=== PATIENT | female | born 1965 | race African-American/Black ===

== ENCOUNTER 2019-02-20 13:50 | Observation (INO) ==
[2019-02-20] MEDS ORDERED: MIRALAX PO PRN (19:07)
[2019-02-20 19:47] LABS: BASO# 0.04 X1000 (0.0-0.2); BASO% 0.5 % (0.0-0.8); EOS# 0.18 X1000 (0.0-0.7); EOS% 2.4 % (0.0-10.0); HEMATOCRIT 35.4 % (37.0-47.0); HEMOGLOBIN 11.7 g/dL (12.0-16.0); IMM GRAN# 0.02 X1000 (0.0-0.04); IMM GRAN% 0.3 % (0.0-0.5); LYMPH# 3.01 X1000 (1.2-3.4); LYMPH% 40.4 % (20.5-51.1); MCH 28.4 PG (27-31); MCHC 33.1 g/dL (33-37); MCV 85.9 FL (81-99); MONO# 0.55 X1000 (0.11-0.59); MONO% 7.4 % (1.7-9.3); MPV 11.2 FL (7.4-10.4); NEUT# 3.65 X1000 (1.4-6.5); PLT 310 X1000 (130-400); RBC 4.12 XMIL (4.2-5.4); RDW 14.4 % (11.5-14.5); WBC 7.45 X1000 (4.8-10.8)
[2019-02-20 19:57] LABS: HEMOGLOBIN A1C 14.1 % (4.8-6.0)
[2019-02-20 20:10] LABS: AGAP 11; ALBUMIN 3.6 g/dL (3.5-5.0); ALKALINE PHOSPHATASE 139 U/L (32-104); BUN 34 mg/dL (8-22); CALCIUM 9.3 mg/dL (8.8-10.2); CHLORIDE 101 mmol/L (98-107); COSMO 295; CREATININE 0.9 mg/dL (0.5-0.9); ESTIMATED GFR > 60; GOT 15 U/L (10-30); GPT 17 U/L (10-36); POTASSIUM 4.2 mmol/L (3.5-5.1); SODIUM 135 mmol/L (136-145); TCO2 23 mmol/L (25-35); TOTAL BILIRUBIN < 0.15 mg/dL (0.20-1.00); TOTAL PROTEIN 7.1 g/dL (6.3-8.3)
[2019-02-20 20:15] LABS: GLUCOSE 409 mg/dL (70-104)
[2019-02-20] MEDS ORDERED: SODIUM CHLORIDE 0.9% INJ SCH (21:30)
[2019-02-20] MEDS: HUMULIN R SUBQ SCH (22:40)
[2019-02-20] MEDS: LOVENOX SUBQ SCH (22:40)
[2019-02-20] MEDS: NEURONTIN PO SCH (22:40)
[2019-02-20 23:15] LABS: URINE SOURCE CLEAN CATCH
[2019-02-20 23:24] LABS: UR EPITHELIAL CELLS <10 /HPF (<10); URINE BACTERIA NEGATIVE /HPF; URINE RBC <10 /HPF (<10); URINE WBC 20-40 /HPF (<10)
--- NOTE | 2019-02-20 23:25 | HISTORY AND PHYSICAL ---
CHIEF COMPLAINT: Uncontrolled blood sugar, running around 600. HISTORY OF PRESENT ILLNESS: She is a 53-year-old female, noncompliant, with uncontrolled diabetes with neuropathy, suffering from neuropathy. Also under the care of Dr. Hurst. Not able to control the blood sugar, obviously. She was on insulin pump and she is noncompliant. She is not getting supplies. She was also seen in the emergency room by Dr. Portillo. He changed the medications and basically admitted her to the hospital for control of diabetes. I placed her on FreeStyle Geremias, and blood sugar is around 400 to 600. She complains of polyuria, polydipsia and vision problems. PAST MEDICAL HISTORY: Neuropathic ulcer in the right foot, hypertension, acid reflux disease, gastroparesis, metabolic syndrome, poorly controlled diabetes. PAST SURGICAL HISTORY: Tubal ligation, incision and drainage of left buttock abscess, right cataract surgery, cholecystectomy. ALLERGIES: Norvasc: Peripheral edema; tramadol: Itching; metformin causing itching and bumps. MEDICATIONS: Aspirin; gabapentin 300 t.i.d.; losartan 25 daily; Amaryl 4 mg daily; Bydureon BCise 2 mg once a week; Hyzaar 100/12.5 daily; polyethylene glycol 17 g daily. 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 No smoking. Occasionally drinks alcohol. She is . FAMILY HISTORY: Father is 79 years old, has PAD from diabetes. Mother has hypertension and diabetes. REVIEW OF SYSTEMS: HEENT: Vision problems. Polyuria, polydipsia. No neck pain. No goiter. Cardiopulmonary: No chest pain, shortness of breath, PND or orthopnea. GI: No nausea, vomiting, abdominal pain. : History of hesitancy, frequency. No dysuria. Has a neuropathic ulcer on the bottom of the right foot. Decreased sensory exam. Neurologic: No focal symptoms, weakness or seizures. PHYSICAL EXAMINATION: VITAL SIGNS: Temperature is 97 degrees, pulse is 83, 119/55. Five feet 5 inches, 197 pounds. HEENT: Exam atraumatic, normocephalic. Pupils equal and reactive to light. TMs are normal. Nose and throat within normal limits. NECK: Supple. No lymphadenopathy. No goiter. CHEST: Bilateral air entry. HEART: Sounds are regular. No murmurs. ABDOMEN: Belly is soft, nontender. Good bowel sounds. EXTREMITIES: Decreased sensory exam. Right foot pressure ulcer slowly healing, under the care of Dr. Hurst. FreeStyle Geremias sensor was placed on the right arm. LABORATORY DATA: CBC: White cell count 7.4, hematocrit 35, platelets 144,000. Sodium 135, potassium 4.2, chloride 101, BUN 34, creatinine 0.9, glucose 409. A1c 14.1. LFTs were normal. ASSESSMENT AND PLAN: 1. A 53-year-old female admitted to the hospital due to uncontrolled diabetes, due to noncompliance. Plan of care as follows: Intravenous fluids. Continue on Bydureon BCise and consider using Jardiance 25 mg daily. 2. Reconcile home medications. 3. Abnormal mammography in [address]. Dr[address] Arce' biopsy was negative. 4. Peripheral neuropathy with ulcer on the right great toe, under the care of Dr. Hurst. We will consult Wound. A1c was 14. 5. Deep venous thrombosis and gastrointestinal prophylaxis with Lovenox and Protonix, respectively. Follow up. cc: Desean Parada MD
[2019-02-20 23:34] LABS: BILIRUBIN URINE NEGATIVE (NEGATIVE); BLOOD URINE MODERATE (NEGATIVE); COLOR YELLOW; GLUCOSE URINE >1000 mg/dL (NEGATIVE); KETONE URINE TRACE mg/dL (NEGATIVE); LEUKOCYTES URINE SMALL (NEGATIVE); NITRITE URINE NEGATIVE (NEGATIVE); PH URINE 5.5; PROTEIN URINE TRACE mg/dL (NEGATIVE); SP GRAVITY URINE 1.016; TURBIDITY URINE CLEAR (CLEAR); UROBILINOGEN URINE NORMAL (NORMAL)
[2019-02-20 23:49] LABS: URINE CASTS NONE SEEN; URINE CRYSTALS NONE SEEN; URINE SMALL ROUND CELLS NONE SEEN; URINE YEAST NONE SEEN
[2019-02-21] MEDS: NS 1,000 ML IV SCH ×2 (01:14→11:00)
[2019-02-21] MEDS: HUMULIN R SUBQ SCH ×5 (01:20→22:06)
[2019-02-21] MEDS: PEPCID IV SCH ×3 (01:26→22:07)
[2019-02-21] MEDS: NEURONTIN PO SCH ×3 (09:41→22:06)
[2019-02-21] MEDS: ASPIRIN PO SCH (09:41)
[2019-02-21] MEDS: AMARYL PO SCH ×2 (09:42→15:54)
[2019-02-21] MEDS: PHENERGAN PO PRN (10:20)
[2019-02-21] MEDS: TYLENOL PO PRN ×2 (10:20→15:53)
[2019-02-21] MEDS: LOVENOX SUBQ SCH (22:06)
--- NOTE | 2019-02-22 01:52 | PROGRESS NOTE ---
DATE: 02/21/2019 SUBJECTIVE: The patient has nauseous. Complains of pain in the right foot. I spoke to Wound consult for a right peripheral neuropathy ulcer OBJECTIVE: Vital Signs: On examination, temperature is 97 degrees, pulse 86, blood pressure is stable. HEENT: Exam within normal limits. Neck: Supple. Blood sugars 366. Abdomen: Belly is soft, nontender. ASSESSMENT AND PLAN: 1. Uncontrolled diabetes. We will check the C-peptide in the morning, basic metabolic. 2. Nausea, due to gastroparesis. We will use the Phenergan. 3. Poor intravenous access. We will attempt the IV. 4. Peripheral neuropathy ulcer on the right foot. Wound consult. 5. Deep venous thrombosis prophylaxis with the Lovenox and continue monitoring the blood sugars and we will check the C-peptide and we will decide LEVEL OF DOCUMENTATION: 35 minutes. cc: Desean Parada MD MTDD
[2019-02-22] MEDS: PHENERGAN PO PRN (06:39)
[2019-02-22] MEDS: HUMULIN R SUBQ SCH ×4 (06:54→20:44)
[2019-02-22 07:11] LABS: AGAP 9; BUN 26 mg/dL (8-22); CALCIUM 8.8 mg/dL (8.8-10.2); CHLORIDE 101 mmol/L (98-107); COSMO 297; CREATININE 0.8 mg/dL (0.5-0.9); ESTIMATED GFR > 60; POTASSIUM 3.9 mmol/L (3.5-5.1); SODIUM 137 mmol/L (136-145); TCO2 27 mmol/L (25-35)
[2019-02-22 07:34] LABS: GLUCOSE 423 mg/dL (70-104)
[2019-02-22] MEDS: TRESIBA FLEXTOUCH U-100 SUBQ SCH (10:09)
[2019-02-22] MEDS: PEPCID IV SCH ×3 (10:11→22:41)
[2019-02-22] MEDS: NEURONTIN PO SCH ×3 (10:11→20:35)
[2019-02-22] MEDS: AMARYL PO SCH (10:11)
[2019-02-22] MEDS: ASPIRIN PO SCH (10:11)
[2019-02-22] MEDS: JARDIANCE 25 MG PO SCH (10:11)
[2019-02-22] MEDS: TYLENOL PO PRN (10:18)
--- NOTE | 2019-02-22 20:21 | PROGRESS NOTE ---
DATE: 02/22/2019 SUBJECTIVE: Poor IV access. Complained of nausea, and blood sugars were erratic. FreeStyle Geremias monitor was given. Blood sugar is running 400. The patient has right foot neuropathic ulcer, which had bandage done. OBJECTIVE: On examination, temperature is 97.5 degrees, pulse 94, blood pressure 154/76. HEENT exam within normal limits. Neck is supple. No lymphadenopathy. Chest has bilateral air entry. Heart sounds are regular. Belly is soft, obese, nontender. Good bowel sounds. No neurological deficits. ASSESSMENT AND PLAN: 1. Uncontrolled diabetes. Currently the plan of care is continue on Bydureon BCise. Start on Jardiance 25 mg daily, Tresiba 20 units daily. Discontinue insulin pump. 2. Possible urinary tract infection. Urine cultures are negative. 3. Right foot neuropathic culture, not healing due to uncontrolled diabetes. Local wound care. 4. Nausea due to diabetic gastroparesis. We will use Phenergan as needed. 5. Deep venous thrombosis prophylaxis with Lovenox, gastrointestinal prophylaxis with Pepcid. We will monitor the sugar in the next 24 hours and follow up on C-peptide levels. Level of documentation 25 minutes. cc: Desean Parada MD
[2019-02-22] MEDS: LOVENOX SUBQ SCH (20:35)
[2019-02-23] MEDS: HUMULIN R SUBQ SCH ×3 (06:56→16:30)
[2019-02-23] MEDS: TYLENOL PO PRN (09:30)
[2019-02-23] MEDS: PEPCID IV SCH (09:30)
[2019-02-23] MEDS: NEURONTIN PO SCH ×3 (09:30→21:33)
[2019-02-23] MEDS: TRESIBA FLEXTOUCH U-100 SUBQ SCH (09:31)
[2019-02-23] MEDS: AMARYL PO SCH (09:31)
[2019-02-23] MEDS: ASPIRIN PO SCH (09:31)
[2019-02-23] MEDS: JARDIANCE 25 MG PO SCH (09:40)
--- NOTE | 2019-02-23 21:08 | PROGRESS NOTE ---
DATE: 02/23/2019 SUBJECTIVE: The patient has poor IV axis and nausea. Blood sugar is still running a little bit high, and C-peptide is low. I am going to increase the Tresiba 30 units and discontinue glimepiride. We will continue on Jardiance along with BCise Byetta. Blood sugars are monitoring on FreeStyle Geremias. OBJECTIVE: On examination, vital signs are stable. Physical exam no change. ASSESSMENT AND PLAN: Uncontrolled diabetes. Plan is increasing Tresiba 30 units. Since C- peptide is low, discontinue glimepiride, BCise and Jardiance. I explained the side effects of the infections. We will continue to monitor, and we will follow up as an outpatient. Level of documentation 25 minutes. cc: Desean Parada MD
[2019-02-23] MEDS: PEPCID PO SCH (21:33)
[2019-02-23] MEDS: PHENERGAN PO PRN (21:33)
[2019-02-23] MEDS: LOVENOX SUBQ SCH (21:34)
[2019-02-24] MEDS: HUMULIN R SUBQ SCH ×3 (00:14→11:32)
[2019-02-24] MEDS ORDERED: INSULIN PEN NEEDLES ONE (07:07)
[2019-02-24] MEDS ORDERED: TRESIBA FLEXTOUCH U-100 SUBQ SCH (09:00)
[2019-02-24] MEDS: NEURONTIN PO SCH (09:12)
[2019-02-24] MEDS: ASPIRIN PO SCH (09:12)
[2019-02-24] MEDS: PEPCID PO SCH (09:12)
[2019-02-24 11:29] VITALS: BP 136/68
[2019-02-24] MEDS: JARDIANCE 25 MG PO SCH (11:33)
--- NOTE | 2019-02-24 20:42 | DISCHARGE SUMMARY ---
ADMISSION DATE: 02/20/2019 DISCHARGE DATE: 02/24/2019 DISCHARGING DIAGNOSIS: 1. Uncontrolled blood sugar due to noncompliance. C-peptide 2.2. 2. Neuropathic ulcer in the right foot. 3. Hypertension. 4. Acid reflux disease. 5. Gastroparesis. 6. Metabolic syndrome. BRIEF HISTORY: Please see the H and P that was done on 02/20. In brief, she is a 53-year-old female has been disabled with complicated diabetes, noncompliant. Was on insulin pump. Seen several times in the ER. Discontinued insulin pump. C-peptide is low. HOSPITAL COURSE: During this hospital course, blood sugars running around 400 to 600. Initially was given IV fluids, and subsequently IV access is problematic. FreeStyle Geremias was placed, and blood sugars are fluctuating. The patient is noncompliant with diet. I did explain the plan of care with control of diabetes as follows. 1. Strict diet. 2. FreeStyle Geremias monitoring. 3. Byetta BCise 2 mg once a week. 4. Jardiance 25 mg daily. 5. Tresiba 40 units every day in the morning. LABS: During this hospital course, CBC: White cell count 7.4, hematocrit 35, platelets 310,000. Sodium 137, potassium 3.9, BUN 26, creatinine 0.8. C-peptide 2.2. A1c 14.1. Urinalysis moderate glycosuria. Urine cultures with mixed roel. DISCHARGE INSTRUCTIONS: 1. Strict diet. 2. FreeStyle Geremias monitoring. DISCHARGE MEDICATIONS: Aspirin 81 mg daily. Neurontin 300 t.i.d. Cozaar 25 daily. Bydureon 2 mg once a week. Hyzaar 100/12.5 daily. Jardiance 25 daily. Tresiba 40 units subcutaneously every day in the morning. MiraLAX 17 g daily. FOLLOWUP: Follow up with the [facility] with Dr. Hurst on the right foot neuropathic ulcer as well as in my office for maintenance care for diabetes. cc: MD Aram Watkins MD
[2019-02-25] MEDS ORDERED: PATIENT'S OWN MED SUBQ SCH (09:00)
== END 2019-02-24 12:59 | disposition home or self-care (01) ==
LOC: INTOOBSV 13:50 → DIRADM 13:50 → 4N 15:35
PROVIDERS: ADMIT Internal Medicine; ATTEND Internal Medicine
CPT/HCPCS: 80048; 80053; 81001; 82948; 83036; 84681; 85025; 87088; A9270; J1650; J7030; S0028; XXXXX

== ENCOUNTER 2019-03-10 10:14 | Inpatient (IN) ==
[2019-03-10 11:43] LABS: ALLEN TEST YES; BE -1.5 mmoll (-3.0-3.0); BLOOD TYPE ARTERIAL; HCO3-(ACT) 23.7 mmoll (20.0-26.0); O2(CT) 15.9 mL/dL (15.0-23.0); O2HB 95.2 % (95.0-99.0); PCO2(98.6) 41 mmHg (35-45); PO2(98.6) 85 mmHg (60-100); SAMPLE BLOOD; THB 11.8 g/dL (11.5-17.4); pH(98.6) 7.37 (7.35-7.45)
[2019-03-10 11:44] LABS: MODALITY ROOM AIR
[2019-03-10 11:45] LABS: BASO# 0.06 X1000 (0.0-0.2); BASO% 0.7 % (0.0-0.8); EOS# 0.22 X1000 (0.0-0.7); EOS% 2.6 % (0.0-10.0); HEMATOCRIT 37.9 % (37.0-47.0); HEMOGLOBIN 12.2 g/dL (12.0-16.0); IMM GRAN# 0.05 X1000 (0.0-0.04); IMM GRAN% 0.6 % (0.0-0.5); LYMPH# 2.82 X1000 (1.2-3.4); LYMPH% 32.8 % (20.5-51.1); MCH 28.6 PG (27-31); MCHC 32.2 g/dL (33-37); MCV 88.8 FL (81-99); MONO# 0.65 X1000 (0.11-0.59); MONO% 7.6 % (1.7-9.3); MPV 11.6 FL (7.4-10.4); NEUT# 4.79 X1000 (1.4-6.5); NEUT% 55.7 % (42.2-75.2); PLT 311 X1000 (130-400); RBC 4.27 XMIL (4.2-5.4); RDW 14.3 % (11.5-14.5); WBC 8.59 X1000 (4.8-10.8)
[2019-03-10 11:53] LABS: INR 0.83; PROTIME 12.1 Seconds (11.0-16.0)
[2019-03-10 11:54] LABS: PTT 29.1 Seconds (22.3-41.8)
[2019-03-10 12:08] LABS: AGAP 22; ALBUMIN 3.7 g/dL (3.5-5.0); ALKALINE PHOSPHATASE 191 U/L (32-104); BUN 32 mg/dL (8-22); CALCIUM 9.8 mg/dL (8.8-10.2); CHLORIDE 91 mmol/L (98-107); COSMO 290; CREATININE 1.1 mg/dL (0.5-0.9); ESTIMATED GFR > 60; GLUCOSE 334 mg/dL (70-104); GOT 25 U/L (10-30); GPT 19 U/L (10-36); POTASSIUM 4.8 mmol/L (3.5-5.1); SODIUM 135 mmol/L (136-145); TCO2 22 mmol/L (25-35); TOTAL BILIRUBIN 0.15 mg/dL (0.20-1.00); TOTAL PROTEIN 7.5 g/dL (6.3-8.3)
[2019-03-10 12:16] LABS: ACETONE SERUM MODERATE (NEGATIVE)
[2019-03-10 12:40] LABS: URINE SOURCE CLEAN CATCH
[2019-03-10 13:06] LABS: BILIRUBIN URINE NEGATIVE (NEGATIVE); BLOOD URINE SMALL (NEGATIVE); COLOR YELLOW; GLUCOSE URINE >1000 mg/dL (NEGATIVE); KETONE URINE 80 mg/dL (NEGATIVE); LEUKOCYTES URINE NEGATIVE (NEGATIVE); NITRITE URINE POSITIVE (NEGATIVE); PROTEIN URINE NEGATIVE (NEGATIVE); SP GRAVITY URINE 1.023; TURBIDITY URINE CLEAR (CLEAR); UR EPITHELIAL CELLS <10 /HPF (<10); URINE BACTERIA 3+ /HPF; URINE RBC <10 /HPF (<10); URINE WBC <10 /HPF (<10); UROBILINOGEN URINE NORMAL (NORMAL)
[2019-03-10 13:07] LABS: URINE YEAST PRESENT
--- NOTE | 2019-03-10 13:49 | Diag Imaging Result Doc PS360 ---
EXAM: CHEST-1 VIEW INDICATION: cp TECHNIQUE: One view COMPARISON: 02/19/2019 FINDINGS: The lungs are grossly clear. There is no discrete pleural fluid collection or pneumothorax. The cardiomediastinal silhouette and central vasculature are grossly unremarkable. IMPRESSION: No evidence of acute pathology by plain radiograph. Electronically signed by Anival Zaidi 03/10/2019 1:47 PM
--- NOTE | 2019-03-10 13:58 | PROVIDER DOCUMENTATION ---
This chart was entered by Krish Mcnamara Scribe, acting as scribe for Carlos A Ross MD. HPI-Chest Pain - General Chief Complaint: Chest Pain Stated Complaint: CP Time Seen by Provider: 03/10/19 10:35 Source: patient Allergies/Adverse Reactions: Patient Allergies Allergy/AdvReac Type Severity Reaction Status Date / Time metformin Allergy RASH Verified 03/04/19 18:57 tramadol Allergy NAUSEA Verified 03/04/19 18:57 Home Medications: Home Medication List Medication Instructions Recorded Confirmed Last Taken Type Aspirin 81 mg PO DAILY #30 tab.chew 01/04/16 02/20/19 02/19/19 Rx Gabapentin 300 mg PO TID 11/23/16 02/20/19 02/20/19 History Losartan [Cozaar] 25 mg PO DAILY 10/05/18 02/20/19 02/20/19 09:00 History Exenatide Microspheres [Bydureon 2 mg INJ DIRECTED 02/15/19 02/20/19 02/17/19 History Bcise] Losartan/Hctz [Hyzaar 100/12.5 mg 1 tab 02/20/19 02/20/19 History Tab] Polyethylene Glycol 3350 [Miralax] 17 gm PO DAILY PRN 02/20/19 02/20/19 02/15/19 History Insulin Degludec [Tresiba 40 unit SUBQ QAM #4 insuln.pen 02/24/19 Unknown Rx Flextouch U-100] Jardiance 25 mg PO DAILY #30 02/24/19 Unknown Rx - History of Present Illness-CP Nature of Presenting Problem: Pt is a 53 y/o F presents to the ED with chest pain that has been going on for a couple weeks since she has been out of the hospita. She reports SOB and worse with exertion. She says she was in the hospital for her diabetes. She says this morning before she ate her BS was 324. She comments that is good for her because it runs in the [facility] Location: reports: substernal (left) Chest Pain Radiation: reports: arms (left) Quality of Pain: reports: aching Severity in ED: mild Onset/Duration: other (2 weeks) Timing: still present Context/Activities at Onset: reports: none Modifying Factors: improves with: nothing Associated Symptoms: reports: shortness of breath. denies: diaphoresis, dizziness, fever/chills Nitro Today/Relief: no nitro taken today Aspirin Treatment Today: no aspirin today Prior Chest Pain/Cardiac Workup: reports: no prior chest pain, no prior cardiac workup Similar Symptoms Previously?: Yes Recently Seen Here or By Another Healthcare Provider: Yes Review of Systems - Adult - REVIEW OF SYSTEMS - ADULT Constitutional: denies: chills, fever Eyes: reports: no symptoms reported Ears, Nose, Mouth & Throat: reports: no symptoms reported Cardiovascular: reports: chest pain. denies: edema, orthopnea, palpitations Respiratory: reports: shortness of breath. denies: cough, wheezing Gastrointestinal: denies: nausea, vomiting Genitourinary: reports: no symptoms reported Musculoskeletal: reports: no symptoms reported Integumentary: reports: no symptoms reported Neurological: reports: no symptoms reported Psychiatric: reports: no symptoms reported Endocrine: reports: no symptoms reported Hematologic/Lymphatic: reports: no symptoms reported Allergic/Immunologic: reports: no symptoms reported All Other Systems: Reviewed and Negative Past History - Adult - PAST MEDICAL HISTORY-ADULT Review of Records: reports: Old Records Reviewed, Nursing Assessment Review, Medications Reviewed Major Childhood Illnesses: reports: denies history Cardiovascular: reports: HTN, hyperlipidemia Respiratory: reports: denies history. denies: asthma Gastrointestinal: reports: denies history Obstetrical/Gynecological: reports: denies history Genitourinary: reports: denies history Musculoskeletal: reports: denies history Neurological: reports: denies history, other Psychiatric: reports: denies history Endocrine/Immune: reports: Diabetes Other Conditions: reports: denies history - PRIOR SURGERIES/PROCEDURES Surgical/Procedure History: reports: reviewed, not pertinent, cholecystectomy, BTL - PRIOR HOSPITALIZATIONS Prior Hospitalizations: reports: none - IMMUNIZATION STATUS Childhood Immunizations: See Nurse Assessment Flu Vaccine: See Nurse Assessment - FAMILY HISTORY Family History: CAD under 55yo, HTN Physical Exam-General - PHYSICAL EXAM-ADULT Initial Vital Signs Reviewed: Yes - CONSTITUTIONAL General Appearance: appears well, alert, no apparent distress - EYES Eyes: PERRL/EOMI, pink conjunctivae - HEAD, EARS, NOSE, MOUTH & THROAT HENMT: moist mucous membranes, TMs normal, pharynx normal - NECK Neck: non-tender, full range of motion, supple, normal inspection - RESPIRATORY Respiratory: lungs clear, normal breath sounds, no pleuratic chest pain, no respiratory distress, no accessory muscle use - CARDIOVASCULAR Cardiovascular: normal peripheral pulses, regular rate, rhythm - GASTROINTESTINAL (ABDOMEN) Abdominal Exam: non tender, soft - MUSCULOSKELETAL Back Exam: normal inspection, no CVA tenderness, no vertebral tenderness Extremity: normal range of motion, non-tender, normal gait, normal inspection, no pedal edema - SKIN Integumentary: normal color, normal turgor, warm/dry - NEUROLOGIC Neurologic: grossly normal, no motor/sensory deficits - PSYCHIATRIC Psych/Mental Status: normal mood/affect, normal thought content, normal thought process, oriented x 3 - HEART Score HEART Score: History: Moderately Suspicious HEART Score: ECG: Non-Specific Repolarization Disturbance/LBBB/PM HEART Score: Age: 45-65 Years HEART Score: Risk Factors for Atherosclerotic Disease: > or = 3 Risk Factors or History of Atherosclerotic Disease HEART Score: Troponin: < or = Normal Limit Total HEART Score:: 5 Progress - PLAN OF CARE/RESULTS Progress/Plan/Lab Results: Vital Signs - 8 hr 03/10/19 10:27 03/10/19 11:33 Temperature 98.0 F Pulse Rate 92 H 89 Respiratory Rate 18 15 Blood Pressure 127/79 132/65 O2 Sat by Pulse Oximetry 100 100 Laboratory Results - last 24 hr 03/10/19 03/10/19 03/10/19 11:24 11:24 11:24 WBC 8.59 RBC 4.27 Hgb 12.2 Hct 37.9 MCV 88.8 MCH 28.6 MCHC 32.2 L RDW Std Deviation 14.3 Plt Count 311 MPV 11.6 H Immature Gran % (Auto) 0.6 H Neut % (Auto) 55.7 Lymph % (Auto) 32.8 Shoshone % (Auto) 7.6 Eos % (Auto) 2.6 Baso % (Auto) 0.7 Immature Gran # (Auto) 0.05 H Neut # (Auto) 4.79 Lymph # (Auto) 2.82 Shoshone # (Auto) 0.65 H Eos # (Auto) 0.22 Baso # (Auto) 0.06 PT INR PTT (Actin FS) Specimen Type Sample Site pH pCO2 pO2 HCO3 Base Excess Oxyhemoglobin ABG O2 Sat (Calculated) ABG O2 Saturation ABG Carboxyhemoglobin ABG Methemoglobin Fermin Test A-a O2 Difference Total Hemoglobin Lactate Blood Gas Modality FiO2 % Sodium 135 L Potassium 4.8 Chloride 91 L Carbon Dioxide 22 L Anion Gap 22 BUN 32 H Creatinine 1.1 H Estimated GFR/1.73 m2 > 60 BUN/Creatinine Ratio 29 Glucose 334 H Calculated Osmolality 290 Calcium 9.8 Total Bilirubin 0.15 L AST 25 ALT 19 Alkaline Phosphatase 191 H Troponin T [id number]-Kteeyyexnpb Pept 133 Total Protein 7.5 Albumin 3.7 Globulin 3.8 Albumin/Globulin Ratio 1.0 Urine Source Urine Color Urine Turbidity Urine pH Ur Specific Wing[place] Urine Protein Ur Glucose (Stick) Ur Ketones (Stick) Urine Blood Urine Nitrite Urine Bilirubin Urobilinogen Dipstick Urine Leukocytes Urine WBC (Auto) Urine RBC (Auto) U Epithel Cells (Auto) Urine Bacteria (Auto) Urine Crystals Small Round Cells Urine Casts Urine Yeast-like Cells Acetone Level MODERATE A 03/10/19 03/10/19 03/10/19 11:24 11:24 11:34 WBC RBC Hgb Hct MCV MCH MCHC RDW Std Deviation Plt Count MPV Immature Gran % (Auto) Neut % (Auto) Lymph % (Auto) Shoshone % (Auto) Eos % (Auto) Baso % (Auto) Immature Gran # (Auto) Neut # (Auto) Lymph # (Auto) Shoshone # (Auto) Eos # (Auto) Baso # (Auto) PT 12.1 INR 0.83 PTT (Actin FS) 29.1 Specimen Type ARTERIAL Sample Site R RADIAL pH 7.37 pCO2 41 pO2 85 HCO3 23.7 Base Excess -1.5 Oxyhemoglobin 95.2 ABG O2 Sat (Calculated) 15.9 ABG O2 Saturation 97.0 ABG Carboxyhemoglobin 0.90 ABG Methemoglobin 1.0 Fermin Test YES A-a O2 Difference 13.0 Total Hemoglobin 11.8 Lactate 0.80 Blood Gas Modality ROOM AIR FiO2 % 21.0 Sodium Potassium Chloride Carbon Dioxide Anion Gap BUN Creatinine Estimated GFR/1.73 m2 BUN/Creatinine Ratio Glucose Calculated Osmolality Calcium Total Bilirubin AST ALT Alkaline Phosphatase Troponin T < 0.010 Ikg-U-Wtgjebqujao Pept Total Protein Albumin Globulin Albumin/Globulin Ratio Urine Source Urine Color Urine Turbidity Urine pH Ur Specific Wing[place] Urine Protein Ur Glucose (Stick) Ur Ketones (Stick) Urine Blood Urine Nitrite Urine Bilirubin Urobilinogen Dipstick Urine Leukocytes Urine WBC (Auto) Urine RBC (Auto) U Epithel Cells (Auto) Urine Bacteria (Auto) Urine Crystals Small Round Cells Urine Casts Urine Yeast-like Cells Acetone Level 03/10/19 12:32 WBC RBC Hgb Hct MCV MCH MCHC RDW Std Deviation Plt Count MPV Immature Gran % (Auto) Neut % (Auto) Lymph % (Auto) Shoshone % (Auto) Eos % (Auto) Baso % (Auto) Immature Gran # (Auto) Neut # (Auto) Lymph # (Auto) Shoshone # (Auto) Eos # (Auto) Baso # (Auto) PT INR PTT (Actin FS) Specimen Type Sample Site pH pCO2 pO2 HCO3 Base Excess Oxyhemoglobin ABG O2 Sat (Calculated) ABG O2 Saturation ABG Carboxyhemoglobin ABG Methemoglobin Fermin Test A-a O2 Difference Total Hemoglobin Lactate Blood Gas Modality FiO2 % Sodium Potassium Chloride Carbon Dioxide Anion Gap BUN Creatinine Estimated GFR/1.73 m2 BUN/Creatinine Ratio Glucose Calculated Osmolality Calcium Total Bilirubin AST ALT Alkaline Phosphatase Troponin T Sbs-E-Twsperocwed Pept Total Protein Albumin Globulin Albumin/Globulin Ratio Urine Source CLEAN CATCH Urine Color YELLOW Urine Turbidity CLEAR Urine pH 5.0 Ur Specific [place] 1.023 Urine Protein NEGATIVE Ur Glucose (Stick) >1000 A Ur Ketones (Stick) 80 A Urine Blood SMALL A Urine Nitrite POSITIVE A Urine Bilirubin NEGATIVE Urobilinogen Dipstick NORMAL Urine Leukocytes NEGATIVE Urine WBC (Auto) <10 Urine RBC (Auto) <10 U Epithel Cells (Auto) <10 Urine Bacteria (Auto) 3+ Urine Crystals Not Reportable Small Round Cells Not Reportable Urine Casts Not Reportable Urine Yeast-like Cells PRESENT Acetone Level Orders Category Date Time Status Nursing- Obtain EKG ONCE Care 03/10/19 10:36 Active CHEST-1 VIEW [RAD] Stat Exams 03/10/19 10:36 Completed ABG [RESP] Routine Lab 03/10/19 11:34 Completed CBC WITH ELECTRONIC DIFF [HEME] Stat Lab 03/10/19 11:24 Completed CK PROFILE [SP CHEM] Stat Lab 03/10/19 13:49 Uncollected CK TOTAL [CHEM] Stat Lab 03/10/19 13:49 Uncollected COMPREHENSIVE METABOLIC PANEL [CHEM] Stat Lab 03/10/19 11:24 Completed Ketone [ACETONE SERUM] [CHEM] Stat Lab 03/10/19 11:24 Completed PRO B-NATRIURETIC PEPTIDE Stat Lab 03/10/19 11:24 Completed PROTIME WITH INR [COAG] Stat Lab 03/10/19 11:24 Completed PTT [COAG] Stat Lab 03/10/19 11:24 Completed TROPONIN T Stat Lab 03/10/19 11:24 Completed URINALYSIS [URINALYSIS] Stat Lab 03/10/19 12:32 Completed URINE MANUAL MICROSCOPIC [URINALYSIS] Stat Lab 03/10/19 12:32 Completed EKG [EKG] Stat Ther 03/10/19 10:36 Ordered Result Diagrams: 03/10/19 11:24 03/10/19 11:24 - EKG 1 Time of EKG reading by physician:: 10:21 EKG Read and Signed by:: Carlos A Ross EKG Interpretation (*Must complete 3 of following elements*): Abnormal Rate: 95 Rhythm: NSR Comments: septal infarct - XRAY 1 XRAY Study: Chest Impression: Normal (Negative per ED Dr Ross) - CONSULTS/PCP/HOSPITALIST Notification #1 *Consult/PCP/Hospitalist*: Dr Pollard Time Discussed: 13:47 Reason/Comments: admission Consult Disposition: Admit (accepts for Dr Parada) Departure - Departure Date of Disposition Decision: 03/10/19 Time of Disposition Decision: 13:20 DIAGNOSIS: Chest pain, Uncontrolled diabetes mellitus, UTI (urinary tract infection) Disposition: ADMITTED INPATIENT 09 Certified Medical Emergency: Emergent Condition: Fair Referrals and Follow-Ups: Ankur Parada MD [Primary Care Provider] - - Critical Care Note This patient required my direct & personal management of CC.: No Attestation - Physician/ JEWELL Attestation Patient care was provided by Advanced Practice Provider:: No The physician spent face to face time with patient:: Yes Advanced Practice Provider documentation review:: Supervising physician onsite and consulted in the evaluation and care of this patient. The physician did have a face to face encounter with the patient. This chart was documented by the indicated scribe, (Krish Mcnamara Scribe) and accurately reflects the services I performed and decisions made by me, Carlos A Ross MD, as attested by the provider's signature.
[2019-03-10] MEDS ORDERED: DILAUDID IM PRN (14:00)
[2019-03-10] MEDS ORDERED: ZOFRAN PO PRN (14:00)
[2019-03-10] MEDS ORDERED: HUMULIN R ONE (14:02)
[2019-03-10] MEDS ORDERED: ROCEPHIN 1 GM in NS 50 ML IV ONE (14:04)
[2019-03-10] MEDS ORDERED: DILAUDID IV ONE (14:26)
[2019-03-10] MEDS ORDERED: ZOFRAN IV ONE (14:26)
[2019-03-10] MEDS ORDERED: ASPIRIN PO ONE (15:53)
[2019-03-10] MEDS ORDERED: NITROGLYCERIN TOP ONE (15:53)
[2019-03-10] MEDS ORDERED: ASPIRIN ONE (16:25)
[2019-03-10] MEDS ORDERED: NS 500 ML IV ONE (17:01)
[2019-03-10] MEDS ORDERED: MORPHINE IV PRN (17:02)
[2019-03-10 17:13] LABS: AGAP 23; BUN 31 mg/dL (8-22); CALCIUM 10.2 mg/dL (8.8-10.2); CHLORIDE 94 mmol/L (98-107); COSMO 290; ESTIMATED GFR > 60; GLUCOSE 243 mg/dL (70-104); POTASSIUM 4.4 mmol/L (3.5-5.1); SODIUM 138 mmol/L (136-145); TCO2 21 mmol/L (25-35)
[2019-03-10] MEDS: HUMALOG SUBQ SCH ×2 (17:19→21:22)
[2019-03-10] MEDS: NITROGLYCERIN TOP SCH ×2 (17:24→23:36)
--- NOTE | 2019-03-10 18:01 | HISTORY AND PHYSICAL ---
CHIEF COMPLAINT: Chest pain. HISTORY OF PRESENT ILLNESS: The patient is a 53-year-old black female followed by Dr. Adore Parada, who comes in with complaints of 2-week history of off and on chest pains, left lower midsternal area. She also complains of associated shortness of breath with it at times, particularly with exertion of walking around her home. The pain has sometimes gone down her arms, either the right or the left. She had a more severe episode today. She says she has had nuclear stress testing done in the past 1 to 2 years, but I cannot find record that on the hospitalization, although one was ordered. I do not see the copy of the results on that. This may have been done outpatient by Dr. Parada, however. The patient with long history of diabetic gastroparesis has had some nausea and vomiting develop early this morning as well. MEDICATIONS: Prior to admission are 81 mg aspirin daily. She says she failed to take it yesterday as she had run out and she had not taken one today until she got it in the hospital. [place]. Tresiba 50 units subcutaneous q.a.m. Jardiance unknown dosing. Losartan 25 mg daily. Also listed is Hyzaar 100/12.5 mg. MiraLAX daily. Gabapentin 300 mg p.o. t.i.d. ALLERGIES: Metformin and tramadol. PAST MEDICAL HISTORY: 1. IDDM with history of uncontrolled status with A1c of 14.1 in January. 2. Diabetic gastroparesis. 3. Diabetic foot ulcer right, inferior metatarsal head area, [facility]. 4. Hypertension. 5. Gastroesophageal reflux disease. 6. Metabolic syndrome. 7. Noncompliance. PAST SURGICAL HISTORY: 1. Laparoscopic cholecystectomy, 2016. 2. BTL. 3. I D, left buttock abscess. 4. Right cataract surgery. FAMILY HISTORY: Notable for peripheral arterial disease and diabetes in her father. Mother with hypertension and diabetes. SOCIAL HISTORY: The patient formerly worked in the [employer] at [employer]. She is not working currently. No smoking. Occasional alcohol usage. She is . Her with her today. REVIEW OF SYSTEMS: As above. She denies dysuria, but has noted urinary frequency. She denies fever at home. PHYSICAL EXAMINATION: VITAL SIGNS: Temperature 97.9, pulse 80, respirations 17, blood pressure 161/75 O2 saturation on room air 100%. HEIGHT/WEIGHT: Weight 192, 5 feet 5 inches tall. GENERAL: Black female. Minimally ill appearing. She has had some emesis while I was in the room with her. SKIN: No rashes. There is a diabetic foot ulcer, sole of the foot, base of the right 1st metatarsal, which is fairly shallow, and appears to be healing in with the care of Dr. Monge. HEENT: PERRL. EOMI. Sclerae anicteric. OP: No redness. Tongue in the midline. NECK: No LA, TMJ, JVD, bruits. CARDIOVASCULAR: RRR without murmur. LUNGS: CTA. BACK: No CVA tenderness. ABDOMEN: Soft. No pinpoint tenderness. No mass or organomegaly. GENITOURINARY AND RECTAL: Deferred. EXTREMITIES: No calf tenderness, cords, or edema. Decreased sensation of the lower extremities is noted. NEUROLOGIC: Cranial nerves 2-12 are intact. No focal deficits. DIAGNOSTIC STUDIES: White count 8.59, hemoglobin 12.2, hematocrit 37.9, MCV 88.8, platelets 311,000, neutrophils 55, lymphocytes 32, monocytes 7.1. PT 12.1, INR 0.83, PTT 29.1. ABG on room air reveals pH 7.37, pCO2 of 41, PO2 of 85, HCO3 of 23.7, O2 saturation 97. Sodium 135, potassium 4.8, chloride 91, CO2 of 22, anion gap 22, BUN 32, creatinine 1.1, glucose 334, calcium 9.8, total bilirubin 0.15, AST 25, ALT 19, alkaline phosphatase 191. Troponin less than 0.01. ProBNP 133. Cardiac enzymes were not performed in the emergency room at 11 a.m. as I had discussed these with Dr. Ross, but apparently these were not drawn as per his order or there was a technical glitch. Total protein 7.5, albumin 3.7. Urinalysis shows negative protein, greater than 1000 glucose, 80 ketones, small blood, nitrite positive, leukocyte negative, 3+ bacteria, acetone level moderate. Chest x-ray: No acute pathology. EKG shows normal sinus rhythm with no acute ST changes. This was done twice, and it is fairly normal. ASSESSMENT: 1. Chest pain with multiple risk factors, 2. Uncontrolled insulin-requiring diabetes mellitus. 3. Diabetic gastroparesis. 4. Diabetic foot ulcer, right sole at the first metatarsal head area. 5. Hypertension. 6. Gastroesophageal reflux disease. PLAN: The plan will be to admit the patient to telemetry bed. Check Accu-Cheks serially q.4 h, and give SSI at high dose. Hold her home medications. Apply nitroglycerin paste 1 inch to chest q.6 h. Give her aspirin 325 mg daily. She will receive a 500 mL normal saline bolus, and we will give her 125 mL normal saline with KCl 20 mEq per hour. Continue her Neurontin from home, but otherwise hold her other home medicines. Give her morphine as needed for pain. We will obtain serial cardiac enzymes, troponin levels.. cc: Mehran Pollard MD
[2019-03-10] MEDS: NS + KCL 20 MEQ 1,000 ML IV SCH (18:46)
[2019-03-10] MEDS: PHENERGAN IV PRN (18:59)
[2019-03-10] MEDS: SODIUM CHLORIDE 0.9% INJ PRN (18:59)
[2019-03-10] MEDS: NEURONTIN PO SCH (21:23)
[2019-03-11] MEDS: NS + KCL 20 MEQ 1,000 ML IV SCH ×4 (00:05→18:17)
[2019-03-11 05:07] LABS: BASO# 0.05 X1000 (0.0-0.2); BASO% 0.5 % (0.0-0.8); EOS# 0.21 X1000 (0.0-0.7); EOS% 2.2 % (0.0-10.0); HEMATOCRIT 34.7 % (37.0-47.0); HEMOGLOBIN 11.2 g/dL (12.0-16.0); IMM GRAN# 0.04 X1000 (0.0-0.04); IMM GRAN% 0.4 % (0.0-0.5); LYMPH# 2.82 X1000 (1.2-3.4); LYMPH% 29.9 % (20.5-51.1); MCH 28.4 PG (27-31); MCHC 32.3 g/dL (33-37); MCV 88.1 FL (81-99); MONO# 0.56 X1000 (0.11-0.59); MONO% 5.9 % (1.7-9.3); MPV 10.8 FL (7.4-10.4); NEUT# 5.76 X1000 (1.4-6.5); NEUT% 61.1 % (42.2-75.2); PLT 292 X1000 (130-400); RBC 3.94 XMIL (4.2-5.4); RDW 14.4 % (11.5-14.5); WBC 9.44 X1000 (4.8-10.8)
[2019-03-11] MEDS: PHENERGAN IV PRN (05:38)
[2019-03-11] MEDS: SODIUM CHLORIDE 0.9% INJ PRN (05:38)
[2019-03-11] MEDS: NITROGLYCERIN TOP SCH ×4 (05:38→23:54)
[2019-03-11 06:02] LABS: AGAP 14; BUN 26 mg/dL (8-22); CALCIUM 9.4 mg/dL (8.8-10.2); CHLORIDE 105 mmol/L (98-107); COSMO 292; CREATININE 0.8 mg/dL (0.5-0.9); ESTIMATED GFR > 60; GLUCOSE 114 mg/dL (70-104); POTASSIUM 4.1 mmol/L (3.5-5.1); SODIUM 144 mmol/L (136-145); TCO2 25 mmol/L (25-35)
[2019-03-11] MEDS: HUMALOG SUBQ SCH ×4 (06:26→21:47)
[2019-03-11] MEDS ORDERED: TYLENOL PO PRN (08:16)
[2019-03-11] MEDS ORDERED: ASPIRIN PO SCH (09:00)
--- NOTE | 2019-03-11 09:37 | EKG Report ---
Test Performed on : 03/10/2019 4:07:13 PM Test Reason : cp Blood Pressure : / mmHG Vent. Rate : 079 BPM Atrial Rate : 079 BPM P-R Int : 162 ms QRS Dur : 094 ms QT Int : 398 ms P-R-T Axes : 068 027 075 degrees QTc Int : 456 ms Normal sinus rhythm. Normal ECG When compared with ECG of 10-MAR-2019 10:21, (Unconfirmed) Criteria for Septal infarct are no longer present Confirmed by Best NAVARRO, Fermin Lockwood ([id number]) on 03/12/2019 10:00:47 AM
[2019-03-11] MEDS ORDERED: LEXISCAN ONE (09:49)
[2019-03-11] MEDS: NEURONTIN PO SCH ×3 (12:16→18:16)
--- NOTE | 2019-03-11 17:56 | Diag Imaging Result Document ---
PROCEDURE NAME: MYOCARDIAL PERF SCAN, STR/REST - 03/11/2019 STUDY: Rest/stress Lexiscan myocardial perfusion study. REQUESTING PROVIDER: Dr. Parada. INDICATION: Chest pain. DESCRIPTION: The patient came into the nuclear lab and received a rest injection of technetium 99 sestamibi 13.7 mCi. Multiple tomographic views of the heart were obtained at rest. Subsequently, the patient underwent infusion of Lexiscan 0.4 mg. At peak infusion injected with technetium 99 sestamibi 39.7 mCi. Multiple tomographic views of the heart were obtained following completion of the protocol. SUMMARY OF THE ELECTROCARDIOGRAPH PORTION OF THE STUDY: Resting electrocardiogram shows sinus rhythm with a rate of 78 beats per minute. Resting blood pressure is 127/65. Resting ECG shows no significant abnormalities. During the infusion of Lexiscan the heart rate increased to a maximum of 105 beats per minute. Blood pressure dropped to 83/46. ECG showed no ischemic changes. The patient reported no symptoms. Following the completion of the test, the heart rate and blood pressure returned back to their baseline. In summary, the electrocardiographic response to the infusion of Lexiscan is negative for ischemia. SUMMARY OF THE MYOCARDIAL PERFUSION PORTION OF THE STUDY: Poststress tomographic views of the left ventricle showed normal homogeneous distribution of radiotracer throughout the entire ventricular myocardium. There is no evidence of any poststress defect. The rest images showed normal perfusion. The polar plots revealed the same. There is no evidence of any inducible ischemia nor myocardial scar. The gated SPECT showed normal left ventricular systolic function with ejection fraction estimated at 76% with normal ventricular volumes and no wall motion abnormality. The lung/heart ratio is normal. TID is normal. CONCLUSION: In summary, this study shows: 1. Normal electrocardiographic response to Lexiscan. 2. Normal poststress myocardial perfusion scan. There is no scintigraphic evidence of pharmacologically induced myocardial ischemia. 3. Normal left ventricular systolic function. Ejection fraction is 76%. No wall motion abnormality. Ventricular volumes are normal. The study represents low risk for ischemic events. cc: MD Desean Chawla MD
--- NOTE | 2019-03-11 19:40 | PROGRESS NOTE ---
DATE: 03/11/2019 SUBJECTIVE: Interval history was reviewed. Patient was admitted for chest pain. EKG is unremarkable and events noted over the weekend. OBJECTIVE: On examination, temperature is 97 degrees, pulse 90, blood pressure 130/64. HEENT: Within normal limits. Neck: Supple. Chest: Clear to auscultation. Heart: Sounds are regular. Belly: Is soft, nontender. No obvious neurological deficits. INVESTIGATIONS: CBC: White cell count 9.4, hematocrit 34, platelets 292,000. SMA 7 is normal. Glucose 370. Cardiac enzymes were negative. Triglycerides 227, cholesterol 128, LDL 71. ASSESSMENT AND PLAN: 1. Uncontrolled diabetes. Optimizing the treatment. 2. Chest pain. EKG and cardiac enzymes were negative. Schedule for a myocardial perfusion scan. 3. Continue present treatment and we will follow up. LEVEL OF DOCUMENTATION: 25 minutes. cc: MD Mehran Watkins MD
[2019-03-12] MEDS: NS + KCL 20 MEQ 1,000 ML IV SCH (02:04)
[2019-03-12] MEDS: NITROGLYCERIN TOP SCH (05:31)
[2019-03-12] MEDS: HUMALOG SUBQ SCH (06:50)
[2019-03-12 07:13] VITALS: BP 152/60
[2019-03-12] MEDS ORDERED: NON-FORMULARY MED (Exenatide Microspheres [Bydureon Bcise] 2 MG) INJ SCH (08:15)
[2019-03-12] MEDS ORDERED: TRESIBA FLEXTOUCH U-100 SUBQ SCH (09:00)
== END 2019-03-12 09:40 | disposition home or self-care (01) | DRG 638 ==
LOC: ED 10:14 → 3N 14:36
PROVIDERS: ADMIT Family Medicine; ATTEND Internal Medicine
CPT/HCPCS: 71010; 71045; 78452; 80048; 80053; 80061; 81001; 82009; 82550; 82805; 82948; 83721; 83880; 84484; 85025; 85610; 85730; 87088; 93005; 93010; 93017; A9270; A9500; J0696; J1170; J1815; J2270; J2405; J2550; J2785; J3480; J7040; XXXXX